=== PATIENT | male | born 1970 | race Caucasian/White ===

== ENCOUNTER 2017-11-30 16:16 | Emergency (ER) | payer OTHER ==
[2017-11-30 18:03] VITALS: BP 130/91
--- NOTE | 2017-11-30 18:19 | UC ---
Throat Pain/Nasal Alexis HPI - HPI Summary HPI Summary: Pt with head cold last week. x 2 days right ear pain and progressive cough. productive white sputum. tactile fevers. no chills, rash No cp, sob. 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 No relief with sudafed , mucinex. No tobacco use. No lung dx Pt's medications reviewed this visit - History of Current Complaint Chief Complaint: UCGeneralIllness Stated Complaint: RT EAR ACHE/CHEST CONGESTION Time Seen by Provider: 11/30/17 18:10 Hx Obtained From: Patient Onset/Duration: Gradual Onset Severity: Mild Pain Intensity: 1 Pain Scale Used: 0-10 Numeric Cough: Productive Associated Signs & Symptoms: Positive: Wheezing - Allergies/Home Medications Allergies/Adverse Reactions: Allergies Allergy/AdvReac Type Severity Reaction Status Date / Time No Known Allergies Allergy Verified 11/30/17 18:03 PMH/Surg Hx/FS Hx/Imm Hx Previously Healthy: Yes - Surgical History Surgical History: Yes Surgery Procedure, Year, and Place: hernia, L clavical fx repair - Family History Known Family History: Positive: Hypertension - Social History Occupation: Employed Full-time Lives: With Family Alcohol Use: Occasionally Alcohol Amount: wine Substance Use Type: None Smoking Status (MU): Never Smoked Tobacco Review of Systems Constitutional: Fever ENT: Ear Ache Respiratory: Cough All Other Systems Reviewed And Are Negative: Yes Physical Exam Triage Information Reviewed: Yes Appearance: Well-Appearing, No Pain Distress, Well-Nourished Vital Signs: Initial Vital Signs Temp 99 F 11/30/17 17:53 Pulse 91 11/30/17 17:53 Resp 16 11/30/17 17:53 BP 130/91 11/30/17 17:53 Pulse Ox 97 11/30/17 17:53 Vital Signs Reviewed: Yes Eye Exam: Normal Eyes: Positive: Conjunctiva Clear ENT: Positive: Other - right TM ++ fluid, erythema, buldge left TM wnl turbinates inflammed and boggy + PND no exudate, no erythema uvula midline Dental Exam: Normal Neck exam: Normal Neck: Positive: Supple, Nontender, No Lymphadenopathy Respiratory Exam: Normal Respiratory: Positive: Chest non-tender, No respiratory distress, No accessory muscle use, Wheezing - scattered wheeze upper lung cruz b/l speaking full sentensces coarse cough Cardiovascular Exam: Normal Cardiovascular: Positive: RRR, No Murmur, Pulses Normal Abdominal Exam: Normal Abdomen Description: Positive: Nontender, No Organomegaly, Soft Bowel Sounds: Positive: Present Musculoskeletal Exam: Normal Neurological Exam: Normal Neurological: Positive: Alert Psychological Exam: Normal Skin Exam: Normal Re-Evaluation - Re-Evaluation First Eval Change: Improved - pt wheezing nearly resolved following neb will Rx augmentin flonase mdi return precautions secretion precaution work note Throat Pain/Nasal Course/Dx - Course Course Of Treatment: pt with URI last week now with OM and cough with wheeze. abx. MDI. flonase. hydrate. work note. secretion precaution. return precautions - Differential Dx/Diagnosis Provider Diagnoses: otitis media. bronchitis Discharge - Discharge Plan Condition: Stable Disposition: HOME Prescriptions: Amoxicillin/Clavulanate TAB* [Augmentin TAB 875*] 875 mg PO BID #13 tab Fluticasone NASAL SPRAY 50MCG* [Flonase NASAL SPRAY 50MCG*] 2 spray BOTH NARES DAILY #1 btl Patient Education Materials: Ear Infection (ED), Acute Bronchitis (ED) Forms: *Work Release Referrals: Briana Rascon MD [Primary Care Provider] - Additional Instructions: - Stay well hydrated. Drink plenty of non-alcoholic, non-caffinated beverages. - Alternate ibuprofen (Advil, Motrin) 600mg and Tylenol every 3 hours for pain or fever. Take with food. Do NOT take for more than 4-5 days. - These infections are spread by secretions - do NOT share eating or drinking utensils - clean items you share with other people such as cell phones, computer mouse, TV remote, computer tablets, etc. After you have taken antibiotics for 3 days, change your toothbrush and your pillowcase. - use nasal spray as prescribe - get plenty of restful sleep - humidify the air in the room where you sleep - boil water, run a hot steam shower, vaporizer, cups of water by heat register - okay to take over the counter decongestant and cough medication - contact your doctor, return here, or go to the emergency department with questions or concerns
[2017-11-30] MEDS ORDERED: Albuterol/Ipratropium NEB.SOL* Albuterol 2.5 MG/Ipratropium 0.5 MG 3 ML INH ONE (18:28)
[2017-11-30] MEDS ORDERED: Albuterol HFA INHALER* 8 gm MDI INH ONE (19:00)
[2017-11-30] MEDS ORDERED: Amoxicillin/Clavulanate TAB* 875 MG PO ONE (19:00)
== END 2017-11-30 19:24 | disposition home or self-care (01) ==
LOC: UCCORT 16:16
DX: H66.91 Otitis media, unspecified, right ear (principal); J40 Bronchitis, not specified as acute or chronic
CPT/HCPCS: 99213; A9270-GY; G0463

== ENCOUNTER 2018-09-23 12:29 | Emergency (ER) | payer OTHER ==
[2018-09-23 13:37] VITALS: BP 126/80
--- NOTE | 2018-09-23 14:33 | UC ---
UC General HPI - HPI Summary HPI Summary: Patient presents emergency department reporting 4 days of progressive sinus congestion with ear fullness, nasal congestion and productive cough with yellow sputum. Patient reports tactile temperatures. Patient also with body aches. Patient's been taking Mucinex with short-term relief. Patient states he feels much better following showers. Patient denies nausea vomiting. No appetite. No sick contacts. Patient does not smoke or have lung disease. Patient does bronchitis annually. Pt states his coughing and breathing is worse at night. Patient's medications reviewed this visit. - History of Current Complaint Chief Complaint: UCRespiratory Stated Complaint: HEADACHE, BODY ACHES, CONGESTION Time Seen by Provider: 09/23/18 14:33 Hx Obtained From: Patient, Family/Licensed Marine Engineer Onset/Duration: Gradual Onset Onset Severity: Moderate Current Severity: Moderate Pain Intensity: 5 - Allergy/Home Medications Allergies/Adverse Reactions: Allergies Allergy/AdvReac Type Severity Reaction Status Date / Time No Known Allergies Allergy Verified 09/23/18 13:33 Home Medications: Home Medications Guaifen/Dextromethorphan/PE [Mucinex Fast-Max Severe C 2.5-5-100 mg/5Ml] 20 ml PO Q6H PRN 09/23/18 [History Confirmed 09/23/18] PMH/Surg Hx/FS Hx/Imm Hx Previously Healthy: Yes - Surgical History Surgical History: Yes Surgery Procedure, Year, and Place: hernia, L clavical fx repair - Family History Known Family History: Positive: Hypertension, Non-Contributory - Social History Occupation: Employed Full-time Lives: With Family Alcohol Use: Occasionally Alcohol Amount: wine Substance Use Type: None Smoking Status (MU): Never Smoked Tobacco Review of Systems All Other Systems Reviewed And Are Negative: Yes Constitutional: Positive: Fever - tactile, Fatigue ENT: Positive: Sore Throat, Ear Ache, Nasal Discharge, Sinus Congestion Respiratory: Positive: Cough Physical Exam - Summary Physical Exam Summary: Vital Signs Reviewed: Yes A+Ox3, no distress Eyes: Conjunctiva Clear, AARON. EOM intact and full ENT: Hearing grossly normal right TM + fluid, no erythema, left TM wnl, tubinates inflammed and boggy, + PND, right frontal and max sinuses with discomfort mmoist, uvula midline, no exudate, no erythema Neck: Positive: Supple Respiratory: Positive: No respiratory distress, No accessory muscle use, coarse cough, wheeze diffuse, ronchi right base Cardiovascular: RRR nl s1, s2 no m/r CBT <2 sec abd soft + BS nt/nd no guarding, no distension Musculoskeletal Exam: HEADLEY x 4 without difficulty Strength Intact, ROM Intact Neurological: Positive: Alert, + sensation throughout Psychological: Positive: Normal Response To Family Skin: Positive: no rash, no ecchymosis Triage Information Reviewed: Yes Vital Signs: Initial Vital Signs Temp 98.4 F 09/23/18 13:31 Pulse 96 09/23/18 13:31 Resp 20 09/23/18 13:31 BP 126/80 09/23/18 13:31 Pulse Ox 96 09/23/18 13:31 Diagnostics - Radiology No standard instances Radiology Interpretation Completed By: Radiologist - Patient Name: QUOC CARRERA Medical Record#: [id number] Ordering Physician: Lucero Silva MD Acct.#: [id number] : 1970 Age: 48 Sex: M Location: [facility] Exam Date: 09/23/181442 ADM Status: REG ER Order Information: CHEST PA & LAT 2 VWS Accession Number: [id number] CPT: 98016 INDICATION: Cough, fever, rhonchi at the LEFT lung base. COMPARISON: June 12, 2013 TECHNIQUE: Dual energy PA and routine lateral views of the chest were obtained. REPORT: Mild airspace consolidation at the LEFT lower lung zone likely involving the lower lobe. Negative for pleural effusion or pneumothorax. The heart, pulmonary vasculature, and mediastinal contours are unremarkable. Healed LEFT clavicle fracture with internal fixation hardware. Healed LEFT rib fractures. IMPRESSION: #. LEFT basilar pneumonia. _ <Electronically signed by Ned Bain MD in OV> 09/23/181457 Dictated By: Ned Bain MD Dictated Date/Time: 09/23/181457 Transcribed Date/Time : 09/23/181456 Copy to: CC:Briana Rascon MD; Lucero Silva MD Imaging - [facility] [address] [address] [place] [address] [place] [address] ph ([phone]) ph ) ph ([phone]) This report is only to be considered final once signed by the Provider(s) as displayed in the "<Electronically Signed by >" field (s). Absence of a signature indicates the report is in a draft status and still needs to be finalized. In the event this document was created by someone other than the signing Provider, the individual initiating the document will be listed in the "Entered by:" or "Dictated by:" cruz. Re-Evaluation - Re-Evaluation First Eval Comment: by: Lucero Silva | Reference #: [id number]. improved after neb. reviewed cxr. neb. T+C - precautions given. secretion precaution Course/Dx - Course Course Of Treatment: Patient presents to urgent care reporting 4 days progressive sinus congestion postnasal drip and cough productive of green sputum. Patient states she's been taking Mucinex without relief. Patient with tactile temperatures. On exam vital signs are stable. Fluid in his right ear tender frontal and right maxillary sinuses scattered wheezes and rhonchi in the right base. Patient tired appearing. We'll check chest x-ray give DuoNeb. Patient's rapid flu were negative. We will observe patient antibiotics as well as Flonase. Encourage fluids, humidified air. We'll reassess following that. Patient isn't available comfortable in agreement with plan. - Diagnoses Provider Diagnosis: Rhinosinusitis, Community acquired pneumonia of left lower lobe of lung Discharge - Sign-Out/Discharge Documenting (check all that apply): Patient Departure All imaging exams completed and their final reports reviewed: Yes - Discharge Plan Condition: Stable Disposition: HOME Prescriptions: Albuterol 2.5MG/3ML (0.083%)* [Ventolin 2.5 MG/3 ML NEB.CODY*] 2.5 mg INH Q4H # 30 neb.cody Albuterol HFA INHALER* [Ventolin HFA Inhaler*] 2 puff INH Q4H PRN #1 mdi PRN Reason: wheeze DOXYcycline CAP(*) [DOXYcycline 100MG CAP(*)] 100 mg PO BID #20 cap Fluticasone NASAL SPRAY 50MCG* [Flonase NASAL SPRAY 50MCG*] 2 spray BOTH NARES DAILY #1 btl guaiFENesin/CODIEN 100MG-10MG* [Robitussin AC 100Mg-10Mg*] 10 ml PO Q6HR #100 ml MDD 40 Inhaler, Assist Devices [Aerochamber Mv] 1 each PO Q4HR #1 spacer Patient Education Materials: Community Acquired Pneumonia (ED) Referrals: Briana Rascon MD [Primary Care Provider] - Additional Instructions: -Take antibiotics exactly as prescribed until gone -Use your albuterol or nebulizer every 3 hours for the next 2 days - then as needed -Stay well hydrated - avoid excess caffeine and all alcohol - eat regular, healthy meals - - humidify the air in the room where you sleep - boil water, run a hot steam shower, vaporizer, cups of water by heat register - use nasal spray as instructed - okay to take over the counter decongestant and cough medication - : Okay to alternate ibuprofen (Advil, Motrin) and Tylenol product (Tylenol or Tylenol with codeine) every 3 hours for pain or fever. Take with food. Do NOT take for more than 4-5 days. codeine is a narcotic. do NOT drive, operate machinery or drink alcohol while taking codeine - this is a narcotic (opiate) any may cause constipation -- These infections are spread by secretions - do NOT share eating or drinking utensils - clean items you share with other people such as cell phones, computer mouse, TV remote, computer tablets,etc.. Once you have been antibiotics for 2 days, change your toothbrush and your pillowcase. -Contact your doctor to arrange a follow-up appointment this week. Call your doctor, return here or go to the emergency department with any questions or concerns - Billing Disposition and Condition Condition: STABLE Disposition: Home
[2018-09-23] MEDS ORDERED: Albuterol/Ipratropium NEB.SOL* Albuterol 2.5 MG/Ipratropium 0.5 MG 3 ML INH ONE (14:43)
== END 2018-09-23 15:36 | disposition home or self-care (01) ==
LOC: UCCORT 12:29
DX: J32.9 Chronic sinusitis, unspecified (principal); J18.9 Pneumonia, unspecified organism
CPT/HCPCS: 71046; 99212; A9270-GY; G0463

== ENCOUNTER 2018-11-16 09:17 | Emergency (ER) | payer OTHER ==
[2018-11-16 09:42] VITALS: BP 132/84
--- NOTE | 2018-11-16 10:12 | UC ---
Throat Pain/Nasal Alexis HPI - HPI Summary HPI Summary: 48-year-old male 48-year-old male comes in with a chief complaint of runny nose sinus pressure feeling ill for 2 weeks. His rhinorrhea is yellow and green occasionally with blood in it. Feels a lot of sinus pressure primarily on the right. Ears feel clogged. He has been using steam which does help with the congestion. Denies any shortness of breath or cough or chest congestion. - History of Current Complaint Chief Complaint: UCGeneralIllness Stated Complaint: SINUSES Time Seen by Provider: 11/16/18 10:02 Pain Intensity: 4 - Allergies/Home Medications Allergies/Adverse Reactions: Allergies Allergy/AdvReac Type Severity Reaction Status Date / Time No Known Allergies Allergy Verified 11/16/18 09:35 PMH/Surg Hx/FS Hx/Imm Hx Previously Healthy: Yes - Surgical History Surgical History: Yes Surgery Procedure, Year, and Place: hernia, L clavical fx repair - Family History Known Family History: Positive: Hypertension, Non-Contributory - Social History Alcohol Use: Occasionally Alcohol Amount: wine Substance Use Type: None Smoking Status (MU): Never Smoked Tobacco Review of Systems All Other Systems Reviewed And Are Negative: Yes Constitutional: Positive: Negative Skin: Positive: Negative Eyes: Positive: Negative ENT: Positive: Ear Ache, Nasal Discharge, Sinus Congestion, Sinus Pain/ Tenderness Respiratory: Positive: Negative Cardiovascular: Positive: Negative Gastrointestinal: Positive: Negative Motor: Positive: Negative Neurovascular: Positive: Negative Musculoskeletal: Positive: Negative Neurological: Positive: Negative Psychological: Positive: Negative Is Patient Immunocompromised?: No Physical Exam Triage Information Reviewed: Yes Appearance: No Pain Distress, Well-Nourished, Ill-Appearing - MILD Vital Signs: Initial Vital Signs Temp 98 F 11/16/18 09:38 Pulse 75 11/16/18 09:38 Resp 16 11/16/18 09:38 BP 132/84 11/16/18 09:38 Pulse Ox 98 11/16/18 09:38 Vital Signs Reviewed: Yes Eye Exam: Normal Eyes: Positive: Conjunctiva Clear ENT: Positive: Pharyngeal erythema, Nasal congestion, Nasal drainage, TMs normal Neck exam: Normal Neck: Positive: Supple Respiratory: Positive: Lungs clear, Normal breath sounds, No respiratory distress Cardiovascular: Positive: RRR Musculoskeletal Exam: Normal Musculoskeletal: Positive: Strength Intact, ROM Intact Neurological Exam: Normal Neurological: Positive: Alert, Muscle Tone Normal Psychological Exam: Normal Psychological: Positive: Age Appropriate Behavior Skin Exam: Normal Throat Pain/Nasal Course/Dx - Differential Dx/Diagnosis Provider Diagnosis: Sinusitis Discharge - Sign-Out/Discharge Documenting (check all that apply): Patient Departure All imaging exams completed and their final reports reviewed: No Studies - Discharge Plan Condition: Stable Disposition: HOME Prescriptions: Amoxicillin/Clavulanate TAB* [Augmentin TAB 875*] 875 mg PO BID #20 tab Patient Education Materials: Sinusitis (ED) Referrals: Briana Rascon MD [Primary Care Provider] - Additional Instructions: FOLLOW UP WITH YOUR DOCTOR IF NOT COMPLETELY IMPROVED. GET RECHECKED FOR ANY WORSENING OF YOUR CONDITION OR QUESTIONS OR CONCERNS. - Billing Disposition and Condition Condition: STABLE Disposition: Home
== END 2018-11-16 10:19 | disposition home or self-care (01) ==
LOC: UCCORT 09:17
DX: J32.9 Chronic sinusitis, unspecified (principal)
CPT/HCPCS: 99212; G0463

== ENCOUNTER 2019-09-21 12:39 | Emergency (ER) | payer OTHER ==
[2019-09-21 13:03] VITALS: BP 129/99
--- NOTE | 2019-09-21 13:34 | UC ---
General HPI - HPI Summary HPI Summary: c/o stiffness in lower legs 4 weeks ago. States R hip pain, that now is radiating in groin area. States also now in shoulders. States has gotten to the point were he is "hobbling" to walk. No known tick bite. - History of Current Complaint Chief Complaint: UCGeneralIllness Stated Complaint: JOINT PAIN Time Seen by Provider: 09/21/19 13:00 Hx Obtained From: Patient Onset/Duration: Sudden Onset, Lasting Weeks Timing: Constant Onset Severity: Moderate Current Severity: Moderate Pain Intensity: 4 Associated Signs & Symptoms: Positive: Weakness - Allergy/Home Medications Allergies/Adverse Reactions: Allergies Allergy/AdvReac Type Severity Reaction Status Date / Time No Known Allergies Allergy Verified 09/21/19 12:57 Home Medications: Home Medications Ibuprofen TAB* [Advil TAB*] 400 mg PO Q6H PRN 09/21/19 [History Confirmed ] PMH/Surg Hx/FS Hx/Imm Hx Previously Healthy: Yes - Surgical History Surgical History: Yes Surgery Procedure, Year, and Place: hernia, L clavical fx repair - Family History Known Family History: Positive: Hypertension, Non-Contributory - Social History Alcohol Use: Occasionally Alcohol Amount: wine Substance Use Type: None Smoking Status (MU): Never Smoked Tobacco Review of Systems All Other Systems Reviewed And Are Negative: Yes Musculoskeletal: Positive: Arthralgia, Decreased ROM, Myalgia Is Patient Immunocompromised?: No Physical Exam Triage Information Reviewed: Yes Appearance: Well-Appearing, Well-Nourished, Pain Distress Vital Signs: Initial Vital Signs Temp 98.5 F 09/21/19 12:58 Pulse 86 09/21/19 12:58 Resp 16 09/21/19 12:58 BP 129/99 09/21/19 12:58 Pulse Ox 99 09/21/19 12:58 Vital Signs Reviewed: Yes Eye Exam: Normal ENT Exam: Normal Dental Exam: Normal Neck exam: Normal Respiratory Exam: Normal Cardiovascular Exam: Normal Abdominal Exam: Normal Abdomen Description: Positive: Nontender, No Organomegaly, Soft Musculoskeletal: Positive: Strength Intact, ROM Limited @ - due to soft end feels, pain with palpation in belly of muscles, no joint tenderness except in ankles. appears muscular and fascial pain, Neurological Exam: Normal Neurological: Positive: Other: - patellar, achilees reflexes +2, babinski is negative. Psychological Exam: Normal Skin Exam: Normal Course/Dx - Course Course Of Treatment: hx obtained, exam performed ,meds reviewed, stretches demonstrated, educated on muscle pain and tightness and mediacation, advised to follow up with PCP if these treatments do not help - Diagnoses Provider Diagnosis: Muscle hypertonicity Discharge ED - Sign-Out/Discharge Documenting (check all that apply): Patient Departure All imaging exams completed and their final reports reviewed: No Studies - Discharge Plan Condition: Stable Disposition: HOME Patient Education Materials: Musculoskeletal Pain (ED) Referrals: Briana Rascon MD [Primary Care Provider] - Additional Instructions: 1. use the medication as prescribed. 2. Epsom salt soaks, stretch, and massage for pain and tightness 3. FOllow up with your PCP if treatment is not improving the symptoms - Billing Disposition and Condition Condition: STABLE Disposition: Home
== END 2019-09-21 13:42 | disposition home or self-care (01) ==
LOC: UCCORT 12:39
DX: M62.89 Other specified disorders of muscle (principal)
CPT/HCPCS: 99212; G0463